=== PATIENT | male | born 1970 | race Caucasian/White ===

== ENCOUNTER 2017-09-22 07:15 | Emergency (ER) | payer OTHER ==
[2017-09-22 07:19] VITALS: BP 120/70
--- NOTE | 2017-09-22 07:53 | EDPHY ---
H & P Time Seen by Provider: 09/22/17 07:45 HPI/ROS: CHIEF COMPLAINT: Left 4th toe injury HISTORY OF PRESENT ILLNESS: 46-year-old male presents with a toe injury. He stubbed his toe last evening and this morning he awoke with bruising and swelling of the toe. Pain is moderate and only occurs with weightbearing, movement and with palpation. No other injuries. ROS: No numbness, weakness, bleeding, syncopal episode, other injury. Past Medical/Surgical History: Denies Smoking Status: Never smoked Physical Exam: Alert and oriented, pleasant Extremities: rt 4th toe-ecchymosis and swelling, tenderness over the DIP, pain with ROM Skin: Intact Neuro: Motor and sensory intact Vascular: Capillary refill brisk distally. Constitutional: Initial Vital Signs Temperature (C) 36.8 C 09/22/17 07:15 Heart Rate 67 09/22/17 07:15 Respiratory Rate 16 09/22/17 07:15 Blood Pressure 120/70 09/22/17 07:15 O2 Sat (%) 97 09/22/17 07:15 O2 Delivery Mode Room Air Allergies/Adverse Reactions: No Known Allergies Allergy (Unverified 09/22/17 07:20) Medical Decision Making - Diagnostics Imaging Results: Imaging Impressions Toe X-Ray 09/22/17 07:46 Impression: Minimally displaced intra-articular fracture base of distal phalanx. Imaging: I viewed and interpreted images myself ED Course/Re-evaluation: Toes angie-taped and the patient was placed in a hard-soled shoe. Departure - Departure Disposition: Home, Routine, Self-Care Clinical Impression: Toe fracture, left Qualifiers: Encounter type: initial encounter Toe: lesser toe Fracture type: closed Phalanx : distal Fracture alignment: nondisplaced Qualified Code(s): S92.535A - Nondisplaced fracture of distal phalanx of left lesser toe(s), initial encounter for closed fracture Condition: Good Instructions: Toe Fracture (ED) Additional Instructions: Angie tape toes for comfort. Wear a hard-soled shoe. Ibuprofen 600 mg 3 times daily while the pain persists. Referrals: Rahul Siddiqui DPM [Doctor of Podiatric Medicine] - 5-7 days, if not improved
== END 2017-09-22 08:20 | disposition home or self-care (01) ==
DX: S92.535A Nondisplaced fracture of distal phalanx of left lesser toe(s), initial encounter for closed fracture (principal); W22.8XXA Striking against or struck by other objects, initial encounter